=== PATIENT | female | born 1960 | race Hispanic/Latino ===

== ENCOUNTER 2016-11-26 14:16 | Outpatient (CLI) | payer BC | END 2016-11-26 14:17 | disposition home or self-care (01) | LOC: LABLEX 14:16 | PROVIDERS: ATTEND Family Medicine | DX: N39.0 Urinary tract infection, site not specified (principal) | CPT/HCPCS: 87077; 87086 ==

== ENCOUNTER 2017-04-01 15:14 | Outpatient (CLI) | payer BC | END 2017-04-01 15:15 | disposition home or self-care (01) | LOC: LABLEX 15:14 | PROVIDERS: ATTEND Family Medicine | DX: N30.00 Acute cystitis without hematuria (principal) | CPT/HCPCS: 87077; 87086; 87186 ==

== ENCOUNTER 2017-06-16 13:45 | Outpatient (CLI) | payer BC | END 2017-06-16 13:46 | disposition home or self-care (01) | LOC: LABLEX 13:45 | PROVIDERS: ATTEND Family Medicine | DX: N30.00 Acute cystitis without hematuria (principal) | CPT/HCPCS: 87077; 87086; 87186 ==